=== PATIENT | male | born 1960 | race Hispanic/Latino ===

== ENCOUNTER 2017-08-08 07:33 | Day surgery (SDC) | payer OTHER ==
[~2017-08-08] VITALS: Ht 170.2 cm; Wt 113.9 kg
[~2017-08-08 07:33] MED LIST: BUDE10.22 IH; CETI10TA57 PO; ESOM40CA PO; FLUT16H NS; IBUP-2071 PO; LEVO100T12 PO; LISI10TA7 PO; SILD20TA14 PO; SODIUM CHLORIDE 0.9% 1000ML 1,000 ML IV ONE; TRIA1TAB3 PO; ZOLP10TA6 PO
[2017-08-08 08:11] VITALS: BP 130/71
[2017-08-08] MEDS ORDERED: SIMV10TA6 PO (09:40)
[2017-08-08] MEDS ORDERED: PROPOFOL 10 MG/ML 20ML VIAL IV ONE (10:54)
[2017-08-08 11:22] VITALS: BP 130/67
== END 2017-08-08 11:55 | disposition home or self-care (01) ==
LOC: DAH 07:33 → ENDO 07:33
PROVIDERS: ATTEND Internal Medicine
DX: K63.5 Polyp of colon (principal); K64.8 Other hemorrhoids; K21.0 Gastro-esophageal reflux disease with esophagitis; E78.5 Hyperlipidemia, unspecified; I10 Essential (primary) hypertension; J44.9 Chronic obstructive pulmonary disease, unspecified; E03.8 Other specified hypothyroidism; G47.30 Sleep apnea, unspecified; Z98.890 Other specified postprocedural states; K29.50 Unspecified chronic gastritis without bleeding; E66.01 Morbid (severe) obesity due to excess calories; Z79.899 Other long term (current) drug therapy; Z68.41 Body mass index [BMI] 40.0-44.9, adult
CPT/HCPCS: 43239; 45380; 88305; 88312; 93005; A4606; J2704; J7030

== ENCOUNTER 2023-04-16 07:15 | Day surgery (SDC) | payer OTHER ==
[2023-04-16] VITALS (8 sets, daily range): BP systolic 120–147; BP diastolic 70–82; PULSE 69–82; RESP 14–16
[~2023-04-16 07:15] MED LIST changes: +0.9%NACL 1000ML 1,000 ML IV ONE; -BUDE10.22 IH; -CETI10TA57 PO; +LISI10TA24 PO; -LISI10TA7 PO; +SIMV10TA97 PO; -SODIUM CHLORIDE 0.9% 1000ML 1,000 ML IV ONE
[2023-04-16] MEDS ORDERED: AUD IH (07:58)
[2023-04-16] MEDS ORDERED: PROPOFOL 10 MG/ML 20ML VIAL IV ONE (11:20)
== END 2023-04-16 12:30 | disposition home or self-care (01) ==
LOC: ENDO 07:15 → DAH 07:15 → ENDO 12:30
PROVIDERS: ATTEND Internal Medicine Gastroenterology
DX: Z12.11 Encounter for screening for malignant neoplasm of colon (principal); K29.70 Gastritis, unspecified, without bleeding; K31.89 Other diseases of stomach and duodenum; K44.9 Diaphragmatic hernia without obstruction or gangrene; K64.1 Second degree hemorrhoids; K57.30 Diverticulosis of large intestine without perforation or abscess without bleeding; K21.00 Gastro-esophageal reflux disease with esophagitis, without bleeding; R14.0 Abdominal distension (gaseous); R13.10 Dysphagia, unspecified; I10 Essential (primary) hypertension; E78.5 Hyperlipidemia, unspecified; E03.9 Hypothyroidism, unspecified; J44.9 Chronic obstructive pulmonary disease, unspecified; G47.30 Sleep apnea, unspecified; F32.A Depression, unspecified; Z86.010 Personal history of colon polyps; Z82.49 Family history of ischemic heart disease and other diseases of the circulatory system; Z83.3 Family history of diabetes mellitus; Z82.5 Family history of asthma and other chronic lower respiratory diseases; Z79.1 Long term (current) use of non-steroidal anti-inflammatories (NSAID); Z87.891 Personal history of nicotine dependence; Z79.899 Other long term (current) drug therapy; Z79.890 Hormone replacement therapy; Z98.890 Other specified postprocedural states
CPT/HCPCS: 43239; 45378; J7030 ×3; J2704; A4620 ×2; A4215 ×4; A4223 ×2; A7002 ×2; A4222 ×2; A4221 ×2; A4663 ×2; A4606 ×2; J3490